=== PATIENT | female | born 1990 | race Caucasian/White ===

== ENCOUNTER 2018-01-25 05:17 | Inpatient (IN) | payer MEDICAID ==
[2018-01-25] MEDS ORDERED: Nalbuphine 10 MG/1 ML Vial IVPUSH PRN (05:57)
[2018-01-25] MEDS ORDERED: Sodium Chloride 0.9% 10 ML Syringe FLUSH PRN (05:57)
[2018-01-25] MEDS ORDERED: Sodium Chloride 0.9% 2.5 ML Syringe FLUSH PRN (05:57)
[2018-01-25] MEDS ORDERED: Carboprost Tromethamine 250 MCG/1 ML Amp IM PRN (05:57)
[2018-01-25] MEDS ORDERED: Lidocaine 1% 50 ML MDV INJECT PRN (05:57)
[2018-01-25] MEDS ORDERED: Tranexamic Acid 1,000 MG in Sodium Chloride 0.9% 100 ML IV PRN (05:57)
[2018-01-25] MEDS ORDERED: Methylergonovine 0.2 MG/1 ML Amp IM PRN (05:57)
[2018-01-25] MEDS ORDERED: Terbutaline 1 MG/ML SDV SUBCUT PRN (05:57)
[2018-01-25] MEDS ORDERED: Butorphanol 1 MG/ML SDV IVPUSH PRN (05:57)
[2018-01-25] MEDS ORDERED: Water For Irrigation,Sterile 1,000 ML Container IRR PRN (05:57)
[2018-01-25] MEDS ORDERED: Misoprostol 200 MCG Tab PO PRN (05:57)
[2018-01-25] MEDS ORDERED: Oxytocin/0.9 % Sodium Chloride 30 UNIT/500 ML BAG IV SCH ×2 (06:00)
[2018-01-25] MEDS: Lactated Ringers 1,000 ML IV SCH ×2 (06:37→10:06)
--- NOTE | 2018-01-25 09:51 | PCM.PREANE ---
Preanesthetic Assessment - Anesthesia/Transfusion/Family Hx Anesthesia History: Prior Anesthesia Without Reaction Transfusion History: No Prior Transfusion(s) - Review of Systems General: No Symptoms Pulmonary: No Symptoms Cardiovascular: No Symptoms Gastrointestinal: No Symptoms Neurological: No Symptoms Other: Reports: None - Physical Assessment Height: 5 ft 3 in Weight: 74.389 kg ASA Class: 2 Mental Status: Alert & Oriented x3 Airway Class: Mallampati = 2 Dentition: Reports: Normal Dentition Thyro-Mental Finger Breadths: 3 Mouth Opening Finger Breadths: 3 ROM/Head Extension: Full Lungs: Clear to Auscultation, Normal Respiratory Effort Cardiovascular: Regular Rate, Regular Rhythm - Lab Values: Laboratory Last Values WBC 12.99 K/uL (4.0-11.0) H 01/25/18 06:15 RBC 3.73 M/uL (4.30-5.90) L 01/25/18 06:15 Hgb 11.5 g/dL (12.0-16.0) L 01/25/18 06:15 Hct 34.9 % (36.0-46.0) L 01/25/18 06:15 MCV 93.6 fL (80.0-98.0) 01/25/18 06:15 MCH 30.8 pg (27.0-32.0) 01/25/18 06:15 MCHC 33.0 g/dL (31.0-37.0) 01/25/18 06:15 RDW Std Deviation 47.5 fl (28.0-62.0) 01/25/18 06:15 RDW Coeff of Thao 14 % (11.0-15.0) 01/25/18 06:15 Plt Count 191 K/uL (150-400) 01/25/18 06:15 MPV 11.30 fL (7.40-12.00) 01/25/18 06:15 Blood Type A POSITIVE 01/25/18 06:15 Antibody Screen NEGATIVE 01/25/18 06:15 - Allergies Allergies/Adverse Reactions: Allergies Allergy/AdvReac Type Severity Reaction Status Date / Time leobardo Allergy Anaphylactic Verified 06/24/16 12:24 Shock metronidazole [From Flagyl] Allergy Itching Verified 08/08/15 13:35 - Acknowledgements Anesthesia Type Planned: Epidural Pt an Appropriate Candidate for the Planned Anesthesia: Yes Alternatives and Risks of Anesthesia Discussed w Pt/Guardian: Yes Pt/Guardian Understands and Agrees with Anesthesia Plan: Yes PreAnesthesia Questionnaire HEENT History: Reports: None Cardiovascular History: Reports: None Respiratory History: Reports: None Gastrointestinal History: Reports: GERD Genitourinary History: Reports: None BELT PUNCHER History: Reports: , Other (See Below) : 6 Para: 5 LMP (Approximate): Other OB/BYN History: Abnormal pap followed by a LEEP procedure. Musculoskeletal History: Reports: None Neurological History: Reports: None Psychiatric History: Reports: Anxiety, Bipolar, Depression Endocrine/Metabolic History: Reports: None Hematologic History: Reports: None Immunologic History: Reports: None Oncologic (Cancer) History: Reports: None Dermatologic History: Reports: None - Past Surgical History HEENT Surgical History: Reports: Oral Surgery Female Surgical History: Reports: LEEP - SUBSTANCE USE Smoking Status *Q: Current Every Day Smoker Tobacco Use Within Last Twelve Months: Cigarettes Second Hand Smoke Exposure: Yes Recreational Drug Use History: Yes Recreational Drug Type: Reports: Methamphetamine (Last use per patient was 3 months ago) - HOME MEDS Home Medications: Home Meds Ascorbic Acid [Vitamin C] 06/24/16 [History] Iron,Carbonyl/Vit C/Vit B12/Fa [Iron 100 Plus Tablet] 06/24/16 [History] Pnv95/Iron Fum/Folic Acid [ Caplet] 06/24/16 [History] buPROPion [Wellbutrin SR] 150 mg PO BID 06/24/16 [History] - CURRENT (IN HOUSE) MEDS Current Meds: Current Medications Butorphanol Tartrate (Stadol) 1 mg IVPUSH ASDIRECTED PRN PRN Reason: Pain Carboprost Tromethamine (Hemabate Ds) 250 mcg IM ASDIRECTED PRN PRN Reason: Post Hemorrhage Lactated Ringer's (Ringers, Lactated) 1,000 mls @ 150 mls/hr IV ASDIRECTED JOSE ALBERTO Last Admin: 01/25/18 06:37 Dose: 150 mls/hr Oxytocin/Sodium Chloride (Oxytocin 30 Unit/500 Ml-Ns) 30 unit in 500 mls @ 999 mls/hr IV ASDIRECTED JOSE ALBERTO Oxytocin/Sodium Chloride (Oxytocin 30 Unit/500 Ml-Ns) 30 unit in 500 mls @ 2 mls/hr IV TITRATE JOSE ALBERTO; Protocol Last Titration: 01/25/18 08:43 Dose: 10 munits/min, 10 mls/hr Tranexamic Acid 1,000 mg/ (Sodium Chloride) 110 mls @ 660 mls/hr IV ONETIME PRN PRN Reason: Bleeding Lidocaine HCl (Xylocaine 1%) 50 ml INJECT .ONCE PRN PRN Reason: Laceration repair Methylergonovine Maleate (Methergine) 0.2 mg IM ASDIRECTED PRN PRN Reason: Post Hemorrhage Misoprostol (Cytotec) 200 mcg PO .ONCE PRN PRN Reason: Post Hemorrhage Nalbuphine HCl (Nubain) 10 mg IVPUSH ASDIRECTED PRN PRN Reason: Pain (severe 7-10) Sodium Chloride (Saline Flush) 10 ml FLUSH ASDIRECTED PRN PRN Reason: Keep Vein Open Sodium Chloride (Saline Flush) 2.5 ml FLUSH ASDIRECTED PRN PRN Reason: Keep Vein Open Sterile Water (Sterile Water For Irrigation) 1,000 ml IRR ASDIRECTED PRN PRN Reason: delivery Terbutaline Sulfate (Brethine) 0.25 mg SUBCUT ASDIRECTED PRN PRN Reason: Tacysystole
[2018-01-25] MEDS ORDERED: Ibuprofen 400 MG Tab PO PRN (11:50)
[2018-01-25] MEDS ORDERED: Docusate Sodium 100 MG Cap PO PRN (11:50)
[2018-01-25] MEDS ORDERED: Bisacodyl 10 MG Supp RECTAL PRN (11:50)
[2018-01-25] MEDS ORDERED: Witch Hazel Medicated Pads 40/Jar TOP PRN (11:50)
[2018-01-25] MEDS ORDERED: oxyCODONE 5 MG Tab PO PRN (11:50)
[2018-01-25] MEDS ORDERED: Ibuprofen 800 MG Tab PO PRN (11:50)
[2018-01-25] MEDS ORDERED: Benzocaine/Menthol 20%-0.5% Spray 78 GM Cannister TOP PRN (11:50)
[2018-01-25] MEDS ORDERED: Lanolin 100% Cream 7 GM Tube TOP PRN (11:50)
[2018-01-25] MEDS ORDERED: Acetaminophen 500 MG Tab PO PRN ×2 (11:50)
--- NOTE | 2018-01-25 12:50 | OR ---
SURGEON: Mirna Knowles MD DATE OF PROCEDURE: 01/25/2018 PREOPERATIVE DIAGNOSES: 1. Term at 40 weeks and 1 day gestation. 2. Grand multiparity with history of precipitate labor. 3. Insufficient care. POSTOPERATIVE DIAGNOSES: 1. Term at 40 weeks and 1 day gestation. 2. Grand multiparity with history of precipitate labor. 3. Insufficient care. 4. Delivered. PROCEDURES: 1. Induction of labor. 2. Spontaneous vaginal delivery. ANESTHESIA: Epidural. ESTIMATED BLOOD LOSS: 200 mL. COMPLICATIONS: None. DISPOSITION: Mother and baby stable in Labor and Delivery room, bonding. FINDINGS: Male , weight 3760 g, score 8 and 9 at 1 and 5 minutes respectively. Grossly normal placenta with three-vessel cord. Intact perineum. BRIEF HISTORY: The patient is a 28-year-old G6, P5, who was admitted today at 40 weeks and 1 day gestation for induction of labor secondary to history of previous precipitate labor and delivery. The patient was seen by me twice in this ,the Ist time was 2 weeks ago. She had previously had some care over at [facility], but based on the documentation that we received from [facility], she last seen there in November. This , unfortunately, was apart from being complicated by insufficient care, was also complicated by a history of drug use, her UDS throughout the had remained negative, and she is currently in a rehab-counseling program with [facility] here in [place], [place]. She also has a history of bipolar disorder, but has remained asymptomatic and is currently on no medication. On the two occasions that I saw her, she had no concerns. Ultrasound was performed, which confirmed adequate growth. Her GBS culture was negative. On admission today, she was 2-3 cm dilated, oxytocin infusion was commenced for induction of labor and artificial rupture of membranes was performed with clear amniotic fluid returned. She received epidural for pain management and thereafter progressed nicely to full dilatation on a maximum dose of 10 milliunits per minute. With pushing, she brought the baby's head down to a +4 station within two contractions and was set up for delivery in a modified dorsal lithotomy position. PROCEDURE IN DETAIL: She had a spontaneous vaginal delivery of a live male in direct occipital anterior position, clear amniotic fluid at delivery, nuchal cord x 2, both were loose and easily reduced on the perineum. Anterior and posterior shoulders and the rest of the baby were delivered without difficulty. The baby was vigorous and cried spontaneously at . The baby was delivered onto the maternal abdomen with the nursery nurse in attendance, stimulating and drying him. Delayed cord clamping was performed and the cord was subsequently cut by the maternal grandmother. With delivery of the , oxytocin infusion was converted to titration for active management of third stage of labor. Cord blood and gas samples were obtained. The placenta was delivered by controlled cord traction appeared to be complete and intact. Vigorous uterine massage was performed and the uterus was found to be well contracted below the umbilicus. Examination of the perineum revealed no lacerations. The patient tolerated the procedure well. Sponge, instrument, and needle counts were correct at the end of the delivery. ADUMVIV / KENDRAL /[id number] MTDD
--- NOTE | 2018-01-26 07:31 | PCM48HPAN ---
Post Anesthesia Note - EVALUATION WITHIN 48HRS OF ANESTHETIC Vital Signs in Normal Range: Yes Patient Participated in Evaluation: Yes Respiratory Function Stable: Yes Airway Patent: Yes Cardiovascular Function Stable: Yes Hydration Status Stable: Yes Pain Control Satisfactory: Yes Nausea and Vomiting Control Satisfactory: Yes Mental Status Recovered: Yes Resp Rate: 16
--- NOTE | 2018-01-26 07:53 | PCM.PNPP ---
- General Info Date of Service: 01/26/18 Functional Status: Reports: Pain Controlled, Tolerating Diet, Ambulating, Urinating - Review of Systems General: Denies: Fever, Fatigue, Chills HEENT: Denies: Headaches Pulmonary: Denies: Shortness of Breath, Pleuritic Chest Pain, Cough Cardiovascular: Denies: Chest Pain, Palpitations, Dyspnea on Exertion Gastrointestinal: Denies: Abdominal Pain Genitourinary: Denies: Dysuria, Incontinence, Retention Neurological: Denies: No Symptoms - General Info Date of Service: 01/26/18 - Patient Data Vital Signs - Most Recent: Last Vital Signs Temp 36.5 C 01/26/18 04:30 Pulse 72 01/26/18 04:30 Resp 16 01/26/18 07:31 BP 105/65 01/26/18 04:30 Pulse Ox 95 01/26/18 04:30 Weight - Most Recent: 164 lb Lab Results - Last 24 Hours: Laboratory Results - last 24 hr 01/25/18 01/26/18 Range/Units 11:28 06:07 Hgb 11.2 L (12.0-16.0) g/dL Hct 34.7 L (36.0-46.0) % Cord ABG pH 7.237 (7.18-7.38) Cord ABG Base Excess -6 (-10--2) Cord VBG pH 7.407 (7.25-7.45) Cord VBG Base Excess -2 (-10--2) Med Orders - Current: Current Medications Acetaminophen (Tylenol Extra Strength) 500 mg PO Q4H PRN PRN Reason: Pain Acetaminophen (Tylenol Extra Strength) 1,000 mg PO Q4H PRN PRN Reason: Pain Benzocaine/Menthol (Dermoplast Pain Relief 20%-0.5% [place]) 78 gm TOP ASDIRECTED PRN PRN Reason: Perineal Comfort Measure Bisacodyl (Dulcolax) 10 mg RECTAL .ONCE PRN PRN Reason: Constipation Docusate Sodium (Colace) 100 mg PO BID PRN PRN Reason: Constipation Emollient Ointment (Lansinoh Hpa) 0 gm TOP ASDIRECTED PRN PRN Reason: Sore Nipples Ibuprofen (Motrin) 400 mg PO Q4H PRN PRN Reason: Pain Ibuprofen (Motrin) 800 mg PO Q6H PRN PRN Reason: Pain Last Admin: 01/25/18 19:57 Dose: 800 mg Oxycodone HCl (Oxycodone) 5 mg PO Q2H PRN PRN Reason: Pain Witch Smita (Tucks) 1 pad TOP ASDIRECTED PRN PRN Reason: comfort care Discontinued Medications Butorphanol Tartrate (Stadol) 1 mg IVPUSH ASDIRECTED PRN PRN Reason: Pain Carboprost Tromethamine (Hemabate Ds) 250 mcg IM ASDIRECTED PRN PRN Reason: Post Hemorrhage Lactated Ringer's (Ringers, Lactated) 1,000 mls @ 150 mls/hr IV ASDIRECTED JOSE ALBERTO Last Admin: 01/25/18 10:06 Dose: 150 mls/hr Oxytocin/Sodium Chloride (Oxytocin 30 Unit/500 Ml-Ns) 30 unit in 500 mls @ 999 mls/hr IV ASDIRECTED JOSE ALBERTO Oxytocin/Sodium Chloride (Oxytocin 30 Unit/500 Ml-Ns) 30 unit in 500 mls @ 2 mls/hr IV TITRATE JOSE ALBERTO; Protocol Last Titration: 01/25/18 08:43 Dose: 10 munits/min, 10 mls/hr Tranexamic Acid 1,000 mg/ (Sodium Chloride) 110 mls @ 660 mls/hr IV ONETIME PRN PRN Reason: Bleeding Fentanyl/Bupivacaine HCl (Etwkjuwz-Aehfc-Yt 2 Mcg/Ml-0.125%) Confirm Administered Dose 100 mls @ as directed EP .STK-MED ONE Stop: 01/25/18 09:56 Lidocaine HCl (Xylocaine 1%) 50 ml INJECT .ONCE PRN PRN Reason: Laceration repair Methylergonovine Maleate (Methergine) 0.2 mg IM ASDIRECTED PRN PRN Reason: Post Hemorrhage Misoprostol (Cytotec) 200 mcg PO .ONCE PRN PRN Reason: Post Hemorrhage Nalbuphine HCl (Nubain) 10 mg IVPUSH ASDIRECTED PRN PRN Reason: Pain (severe 7-10) Sodium Chloride (Saline Flush) 10 ml FLUSH ASDIRECTED PRN PRN Reason: Keep Vein Open Sodium Chloride (Saline Flush) 2.5 ml FLUSH ASDIRECTED PRN PRN Reason: Keep Vein Open Sterile Water (Sterile Water For Irrigation) 1,000 ml IRR ASDIRECTED PRN PRN Reason: delivery Last Admin: 01/25/18 11:30 Dose: 1,000 ml Terbutaline Sulfate (Brethine) 0.25 mg SUBCUT ASDIRECTED PRN PRN Reason: Tacysystole - Infant Interaction Infant Disposition, : [place] in Room with Family Infant Feeding: Bottle Fed Support Person: Mother - Recovery Exam Fundal Tone: Firm Fundal Level: At Umbilicus Fundal Placement: Midline Lochia Amount: Scant Lochia Color: Rubra/Red Perineum Description: Intact, Minimal Bruising/Swelling Episiotomy/Laceration: None Bladder Status: Voiding Urinary Elimination: Voided - Exam General: Alert, Oriented Neck: Supple Lungs: Clear to Auscultation, Normal Respiratory Effort Cardiovascular: Regular Rate, Regular Rhythm GI/Abdominal Exam: Normal Bowel Sounds Extremities: Non-Tender, Pedal Edema Psy/Mental Status: Alert, Normal Affect, Normal Mood - Problem List Review Problem List Initiated/Reviewed/Updated: Yes - My Orders Last 24 Hours: My Active Orders 01/25/18 11:50 Patient Status [ADT] Routine May Shower [RC] ASDIRECTED Up ad Cecilia [RC] ASDIRECTED Vital Signs [RC] PER UNIT ROUTINE Acetaminophen [Tylenol Extra Strength] 1,000 mg PO Q4H PRN Acetaminophen [Tylenol Extra Strength] 500 mg PO Q4H PRN Benzocaine/Menthol [Dermoplast Pain Relief 20%-0.5% [place]] 78 gm TOP ASDIRECTED PRN Bisacodyl [Dulcolax] 10 mg RECTAL .ONCE PRN Docusate Sodium [Colace] 100 mg PO BID PRN Ibuprofen [Motrin] 400 mg PO Q4H PRN Ibuprofen [Motrin] 800 mg PO Q6H PRN Lanolin [Lansinoh HPA] See Dose Instructions TOP ASDIRECTED PRN Witch Smita [Tucks] 1 pad TOP ASDIRECTED PRN oxyCODONE 5 mg PO Q2H PRN Assess Lochia [WOMSER] Per Unit Routine Assess Uterine Involution [WOMSER] Per Unit Routine Peripheral IV Discontinue [OM.PC] Routine Resuscitation Status Routine 01/25/18 11:51 Perineal Care [OM.PC] Per Unit Routine 01/25/18 Dinner Regular Diet [DIET] - Assessment Assessment:: PPD#1 s/p , stable and afebrile Clinically stable for discharge today - Plan Plan:: Discharge instructions reviewed Nothing in the vagina for 6 weeks Bleeding and infection precautions reviewed Continue PNV for 4 weeks Follow up in the clinic in 6 weeks
[2018-01-26 11:01] VITALS: BP 104/65
== END 2018-01-26 15:15 | disposition home or self-care (01) | DRG 775 ==
LOC: MW.OBCHECK 05:17 → MW.OB 05:19 → MW.OBCHECK 05:57 → OBSVTOIN 11:28
PROVIDERS: ADMIT Obstetrics & Gynecology; ATTEND Obstetrics & Gynecology
PROC: 10E0XZZ Delivery of Products of Conception, External Approach (ICD-10-PCS; principal; 2018-01-25)
PROC: 3E033VJ Introduction of Other Hormone into Peripheral Vein, Percutaneous Approach (ICD-10-PCS; 2018-01-25)
PROC: 10907ZC Drainage of Amniotic Fluid, Therapeutic from Products of Conception, Via Natural or Artificial Opening (ICD-10-PCS; 2018-01-25)
DX: O99.324 Drug use complicating childbirth (principal); O09.43 Supervision of pregnancy with grand multiparity, third trimester; O09.33 Supervision of pregnancy with insufficient antenatal care, third trimester; F31.9 Bipolar disorder, unspecified; Z3A.40 40 weeks gestation of pregnancy; Z37.0 Single live birth
CPT/HCPCS: 36415; 51702; 59025; 59409; 82803; 85014; 85018; 85027; 86850; 86900; 86901; A9270-GY; J2590; J7120

== ENCOUNTER 2022-11-25 06:22 | Day surgery (SDC) | payer MEDICAID ==
[~2022-11-25 06:22] MED LIST: Lactated Ringers 1,000 ML IV SCH
[2022-11-25] MEDS ORDERED: fentaNYL 50 MCG/ML SDV IVPUSH PRN (07:22)
[2022-11-25] MEDS ORDERED: HYDROmorphone 1 MG/ML Syringe IVPUSH PRN (07:22)
[2022-11-25] MEDS ORDERED: Morphine 2 MG/ML SYRINGE IVPUSH PRN (07:22)
[2022-11-25] MEDS ORDERED: Naloxone 0.4 MG/ML SDV IVPUSH PRN (07:22)
[2022-11-25] MEDS ORDERED: Ondansetron 4 MG/2 ML SDV IVPUSH PRN (07:22)
[2022-11-25] MEDS ORDERED: Albuterol 0.083% 2.5 MG/3 ML Neb Soln NEB PRN (07:22)
[2022-11-25] MEDS ORDERED: Metoclopramide 10 MG/2 ML SDV IVPUSH PRN (07:22)
[2022-11-25] MEDS ORDERED: Dexamethasone 4 MG/ML 5 ML MDV ONE (07:41)
[2022-11-25] MEDS ORDERED: Ketorolac 30 MG/ML SDV ONE (07:41)
[2022-11-25] MEDS ORDERED: Lidocaine 2% 5 ML SDV ONE (07:41)
[2022-11-25] MEDS ORDERED: Ondansetron 4 MG/2 ML SDV ONE ×2 (07:41→07:44)
[2022-11-25] MEDS ORDERED: Propofol 200 MG/20 ML SDV ONE (07:42)
[2022-11-25] MEDS ORDERED: fentaNYL 100 MCG/2 ML SDV ONE (07:42)
[2022-11-25] MEDS ORDERED: Dexmedetomidine 200 MCG/2 ML SDV ONE (07:44)
[2022-11-25] MEDS ORDERED: Water For Injection, Sterile 20 ML ONE (07:45)
[2022-11-25] MEDS ORDERED: Glycopyrrolate 0.2 MG/ML SDV ONE (07:46)
[2022-11-25] MEDS ORDERED: ePHEDrine 50 MG/ML SDV ONE (08:24)
[2022-11-25] MEDS ORDERED: Phenylephrine 1% 10 MG/ML SDV ONE (08:34)
[2022-11-25] MEDS ORDERED: Acetaminophen/oxyCODONE 325-5 MG Tab PO PRN (09:14)
[2022-11-25] MEDS ORDERED: Midazolam 1 MG/ML 2 ML SDV IVPUSH ONE (09:28)
[2022-11-25 10:33] VITALS: BP 110/72; PULSE 79
== END 2022-11-25 10:10 | disposition home or self-care (01) ==
LOC: MW.SDS 06:22
PROVIDERS: ATTEND Obstetrics & Gynecology
DX: N92.0 Excessive and frequent menstruation with regular cycle (principal); F41.9 Anxiety disorder, unspecified; F31.9 Bipolar disorder, unspecified; N15.9 Renal tubulo-interstitial disease, unspecified; F90.9 Attention-deficit hyperactivity disorder, unspecified type; Z88.1 Allergy status to other antibiotic agents; Z79.899 Other long term (current) drug therapy; Z98.890 Other specified postprocedural states; Z87.410 Personal history of cervical dysplasia; Z87.891 Personal history of nicotine dependence; Z91.018 Allergy to other foods
CPT/HCPCS: 00952; J0131; J1100; J1885; J2250; J2370; J2405; J2704; J3010; J3490; J7120